=== PATIENT | female | born 1975 | race Caucasian/White ===

== ENCOUNTER 2017-07-01 12:44 | Emergency (ER) | payer OTHER, BC ==
[~2017-07-01] VITALS: Ht 157.5 cm; Wt 86.2 kg
[2017-07-01] MEDS ORDERED: fentaNYL INJECTION 100 MCG/2 ML AMP IVP STA (13:00)
[2017-07-01] MEDS ORDERED: NS 100 ML (IVPB) BAG IV ONE (13:15)
[2017-07-01] MEDS ORDERED: IOHEXOL 350 MG/ML 100 ML (OMNIPAQUE 350) VIAL IV ONE (13:15)
[2017-07-01 13:35] LABS: BASOPHILS % (AUTO) 1 % (0-10); EOSINOPHILS # (AUTO) 0.1 10^3/uL (0.0-0.3); EOSINOPHILS % (AUTO) 1 % (0-10); LYMPHOCYTES # (AUTO) 2.3 X 10^3 (1.0-4.0); LYMPHOCYTES % (AUTO) 33 % (12-44); MEAN CORPUSCULAR HEMOGLOBIN 31 PG (25-34); MEAN CORPUSCULAR HGB CONC 34 G/DL (32-36); MEAN CORPUSCULAR VOLUME 91 FL (80-99); MEAN PLATELET VOLUME 9.3 FL (7.4-10.4); MONOCYTES # (AUTO) 0.5 X 10^3 (0.0-1.0); MONOCYTES % (AUTO) 7 % (0-12); NEUTROPHILS # (AUTO) 4.1 X 10^3 (1.8-7.8); NEUTROPHILS % (AUTO) 59 % (42-75); PLATELET COUNT 231 10^3/uL (130-400); RED BLOOD COUNT 4.75 10^6/uL (4.35-5.85)
[2017-07-01 13:45] LABS: INR 0.9 (0.8-1.4); PROTHROMBIN TIME PATIENT 12.4 SEC (12.2-14.7)
[2017-07-01 13:56] LABS: ALANINE AMINOTRANSFERASE 15 U/L (0-55); AMYLASE 48 U/L (25-125); ANION GAP 13 MMOL/L (5-14); ASPARTATE AMINO TRANSFERASE 16 U/L (5-34); BILIRUBIN,TOTAL 0.3 MG/DL (0.1-1.0); BLOOD UREA NITROGEN 11 MG/DL (7-18); BUN/CREATININE RATIO 14; CALCIUM 9.2 MG/DL (8.5-10.1); CARBON DIOXIDE 23 MMOL/L (21-32); CHLORIDE 106 MMOL/L (98-107); CREATININE SERUM 0.77 MG/DL (0.60-1.30); GFR ESTIMATED > 60; GLUCOSE 93 MG/DL (70-105); LIPASE 11 U/L (8-78); POTASSIUM 4.1 MMOL/L (3.6-5.0); SODIUM 142 MMOL/L (135-145); TOTAL PROTEIN 6.8 GM/DL (6.4-8.2)
[2017-07-01] MEDS ORDERED: ESOM2.5S PO (13:59)
[2017-07-01] MEDS ORDERED: CETI10CA PO (13:59)
[2017-07-01] MEDS ORDERED: OXCA300O PO (13:59)
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
[2017-07-01 14:57] LABS: BILIRUBIN,URINE NEGATIVE (NEGATIVE); KETONES,URINE NEGATIVE (NEGATIVE); LEUKOCYTE ESTERASE ,URINE NEGATIVE (NEGATIVE); NITRITE,URINE NEGATIVE (NEGATIVE); PH,URINE 7 (5-9); PROTEIN,URINE NEGATIVE (NEGATIVE); UROBILINOGEN,URINE NORMAL (NORMAL)
[2017-07-01] MEDS ORDERED: MELO15TA14 PO (15:44)
[2017-07-01] MEDS ORDERED: CYCL10TA9 PO (15:44)
[2017-07-01] MEDS ORDERED: KETOROLAC 30 MG/ML VIAL IVP ONE (15:45)
[2017-07-01] MEDS ORDERED: ORPHENADRINE 60 MG/2 ML (NORFLEX) AMP IV ONE (15:45)
[2017-07-01 16:55] VITALS: BP 143/92
== END 2017-07-01 16:55 | disposition home or self-care (01) ==
LOC: ER 12:46
DX: S09.90XA Unspecified injury of head, initial encounter (principal); S16.1XXA Strain of muscle, fascia and tendon at neck level, initial encounter; S29.012A Strain of muscle and tendon of back wall of thorax, initial encounter; S39.012A Strain of muscle, fascia and tendon of lower back, initial encounter; S80.02XA Contusion of left knee, initial encounter; K21.9 Gastro-esophageal reflux disease without esophagitis; F31.9 Bipolar disorder, unspecified; F41.9 Anxiety disorder, unspecified; F17.210 Nicotine dependence, cigarettes, uncomplicated; Z86.012 Personal history of benign carcinoid tumor; Z90.710 Acquired absence of both cervix and uterus; V43.52XA Car driver injured in collision with other type car in traffic accident, initial encounter
CPT/HCPCS: 36415; 70450; 71010; 71260; 72125; 72128; 72131; 73552; 73562; 73590; 73630; 74177; 80053; 81000; 82150; 83690; 85025; 85610; 85730; 93041

== ENCOUNTER 2023-01-31 08:42 | Outpatient (CLI) | payer BC, OTHER ==
[~2023-01-31 08:42] MED LIST: CETI10CA PO; CYCL10TA25 PO; ESOM2.5S PO; MELO15TA14 PO; OXCA300O PO
== END 2023-01-31 09:10 ==
LOC: SLEEP 08:42
PROVIDERS: ATTEND Nurse Practitioner
DX: G47.33 Obstructive sleep apnea (adult) (pediatric) (principal); G47.10 Hypersomnia, unspecified
CPT/HCPCS: G0399